=== PATIENT | female | born 1980 | race Caucasian/White ===

== ENCOUNTER 2019-11-25 10:53 | Outpatient (CLI) | payer OTHER, SELFPAY ==
--- NOTE | ~2019-11-25 | XR_ITS ---
EXAMINATION: XR knee RT 3V DATE: 11/25/2019 11:18 INDICATION: Right knee pain. TECHNIQUE: 3 views of right knee were obtained. COMPARISON: None. FINDINGS: Bone alignment is normal. No fracture. Joint spaces are well maintained. There is no knee j oint effusion. IMPRESSION: 1. Normal right knee. Reviewed, dictated and finalized at location A. IMPRESSION: 1. Normal right knee.
--- NOTE | ~2019-11-25 | XR_ITS ---
EXAMINATION: XR elbow RT min 3V DATE: 11/25/2019 11:18 INDICATION: Posterior right elbow pain for 6 months. No injury. TECHNIQUE: 4 views of right elbow were obtained. COMPARISON: None. FINDINGS: Bone alignment is normal. No fracture. Joint spaces are well maintained. There is no elbow joint effusion. IMPRESSION: 1. Normal right elbow. Reviewed, dictated and finalized at location A. IMPRESSION: 1. Normal right elbow.
== END 2019-11-25 10:54 | disposition home or self-care (01) ==
LOC: ANHIMG 10:58
PROVIDERS: PCP Family Medicine; Visit Provider Physician Assistant
DX: M25.521 Pain in right elbow (principal); M25.561 Pain in right knee
CPT/HCPCS: 73080; 73562

== ENCOUNTER 2020-05-27 06:54 | Outpatient (NON) | payer OTHER, SELFPAY ==
[2020-05-27 19:24] LABS: SARS-CoV-2 RNA PCR Negative
== END 2020-05-27 06:55 ==
LOC: ANHCOVIDDT 07:18
PROVIDERS: PCP Family Medicine; Visit Provider Physician Assistant
DX: R05 Cough (principal); Z20.822 Contact with and (suspected) exposure to COVID-19
CPT/HCPCS: C9803; U0003

== ENCOUNTER → 2020-12-02 15:06 | Outpatient (CLI) | payer OTHER, SELFPAY ==
--- NOTE | ~2020-12-02 | XR_ITS ---
XR foot RT min 3V DATE: 12/02/2020 16:27 INDICATION: Right foot pain TECHNIQUE: 4 views COMPARISON: None FINDINGS: No fracture, dislocation, periosteal reaction or bone destruction or erosive change. IMPRESSION: Negative Reviewed, dictated and finalized at location B. IMPRESSION: Negative
== END ==
PROVIDERS: PCP Physician Assistant; Visit Provider Physician Assistant
DX: M79.671 Pain in right foot (principal)
CPT/HCPCS: 73630

== ENCOUNTER → 2021-05-13 10:03 | Outpatient (CLI) | payer OTHER, SELFPAY ==
--- NOTE | ~2021-05-13 | MM_ITS ---
EXAMINATION: MM screening margot BI w louann HISTORY: Screening TECHNIQUE: Craniocaudal and mediolateral oblique 3-D tomosynthesis images were obtained and synthetic 2-D images were generated. CAD analysis was submitted and interpreted. COMPARISON: No prior mammogram is available for comparison at this institution. BREAST PARENCHYMAL COMPOSITION: The breasts are heterogenously dense, which may obscure small masses. FINDINGS: There is a focal asymmetry in the subareolar location of the right breast on CC view. There are no suspicious. Masses, calcifications or architectural distortion in the left breast to suggest malignancy. IMPRESSION: 1. Focal subareolar right breast asymmetry. 2. Additional mammographic views and possible breast ultrasound are recommended. BI-RADS Category 0: Incomplete: Needs additional imaging evaluation. Reviewed, dictated and finalized at location A. INE PRINTER IMPRESSION: 1. Focal subareolar right breast asymmetry. 2. Additional mammographic views and possible breast ultrasound are recommended . BI-RADS Category 0: Incomplete: Needs additional imaging evaluation.
== END ==
PROVIDERS: Visit Provider Obstetrics & Gynecology
DX: Z12.31 Encounter for screening mammogram for malignant neoplasm of breast (principal); R92.8 Other abnormal and inconclusive findings on diagnostic imaging of breast
CPT/HCPCS: 77063; 77067

== ENCOUNTER 2021-06-07 08:06 | Outpatient (CLI) | payer OTHER, SELFPAY ==
--- NOTE | ~2021-06-07 | MMUS_ITS ---
EXAMINATION: MM diagnostic margot RT w louann, US breast RT complete HISTORY: Follow-up right breast asymmetry TECHNIQUE: Additional 3-D tomosynthesis images of the right breast were performed and synthetic 2-D i mages were generated. CAD analysis was submitted and interpreted. High resolution complete right coral st ultrasound was performed. COMPARISON: 05/13/2021 BREAST PARENCHYMAL COMPOSITION: The breasts are heterogenously dense, which may obscure small masses. FINDINGS: MAMMOGRAPHIC FINDINGS: There are no suspicious masses, calcifications or architectural distortion in the right breast to sug gest malignancy. ULTRASOUND: Complete bilateral US of all 4 quadrants of the right and retroareolar region was reviewed. Normal he terogeneous echotexture without focal solid or cystic mass. IMPRESSION: 1. No evidence for malignancy in the right breast. 2. Routine yearly screening mammogram and regular clinical breast examination are recommended. BI-RADS Category 1: Negative Reviewed, dictated and finalized at location A. UNITY ASSOCIATION MANAGER IMPRESSION: 1. No evidence for malignancy in the right breast. 2. Routine yearly screening mammogram and regular clinical breast examination a re recommended. BI-RADS Category 1: Negative
== END 2021-06-07 08:07 ==
PROVIDERS: Visit Provider Obstetrics & Gynecology
DX: R92.8 Other abnormal and inconclusive findings on diagnostic imaging of breast (principal)
CPT/HCPCS: 76641; 77061; 77065; G0279

== ENCOUNTER → 2021-07-07 08:42 | Outpatient (CLI) | payer OTHER, SELFPAY ==
--- NOTE | ~2021-07-07 | CT_ITS ---
EXAMINATION: CT abdomen pelvis wo con DATE: 07/07/2021 09:13 INDICATION: Gross hematuria and bilateral flank pain TECHNIQUE: Computed tomography (CT) of the abdomen and pelvis was performed without intravenous contr ast. The dose-length product (DLP) was 635.95 mGy-cm. Automated exposure control and iterative recons truction technique were employed. COMPARISON: None FINDINGS: Minimal dependent atelectasis is present in the lung bases. The heart size is normal. The g allbladder is surgically absent. The liver, spleen, pancreas, and adrenal glands are normal. There ar e two nonobstructing stones of the right kidney lower pole which measure 1 mm and 2 mm. There appears to be a 2 mm stone at the left ureterovesicular junction. There is no hydronephrosis or hydroureter. No pathologically enlarged abdominal or pelvic lymph nodes are identified. There is no free intraper itoneal gas or evidence of bowel obstruction. There is mild lumbar spondylosis. IMPRESSION: 1. 2 mm stone of the left ureterovesicular junction without significant hydroureteronephrosis. 2. Nonobstructing right nephrolithiasis. Reviewed, dictated and finalized at location A. S PULLER IMPRESSION: 1. 2 mm stone of the left ureterovesicular junction without significant hydrour eteronephrosis. 2. Nonobstructing right nephrolithiasis.
== END ==
PROVIDERS: PCP Family Medicine; Visit Provider Physician Assistant
DX: N20.0 Calculus of kidney (principal); R31.9 Hematuria, unspecified; R10.9 Unspecified abdominal pain; N20.1 Calculus of ureter
CPT/HCPCS: 74176

== ENCOUNTER → 2022-07-11 16:00 | Outpatient (CLI) | payer OTHER, SELFPAY ==
--- NOTE | ~2022-07-11 | MM_ITS ---
EXAMINATION: MM screening margot BI w louann HISTORY: Screening mammogram TECHNIQUE: Craniocaudal and mediolateral oblique 3-D tomosynthesis images were obtained and synthetic 2-D images were generated. Bilateral rotated lateral CC views. CAD analysis was submitted and interp reted. COMPARISON: 06/07/2021 diagnostic right mammogram and complete right breast ultrasound 05/09/2021 bilateral screening mammogram BREAST PARENCHYMAL COMPOSITION: The breasts are heterogeneously dense, which may obscure small masses . FINDINGS: Suggestion of asymmetry/architectural distortion in the posterior outer left breast on rota trish lateral craniocaudal view. Diagnostic left mammogram is recommended, with ultrasound if required. Otherwise there is no evidence of suspicious mass, calcification, or architectural distortion to sugg est malignancy in either breast. There has been no other suspicious interval change. IMPRESSION: 1. Asymmetry/architectural distortion in posterior outer left breast on rotated lateral craniocaudal view 2. Diagnostic left mammogram is recommended, with ultrasound if required BI-RADS Category 0: Incomplete: Needs additional imaging evaluation. Reviewed, dictated and finalized at location A. FACTURING BUSINESS ANALYST
== END ==
PROVIDERS: PCP Family Medicine; Visit Provider Obstetrics & Gynecology
DX: Z12.31 Encounter for screening mammogram for malignant neoplasm of breast (principal); R92.8 Other abnormal and inconclusive findings on diagnostic imaging of breast
CPT/HCPCS: 77063; 77067

== ENCOUNTER 2022-07-18 15:54 | Outpatient (CLI) | payer OTHER, SELFPAY ==
--- NOTE | ~2022-07-18 | US_ITS ---
EXAMINATION: US pelvic complete w TV DATE: 07/18/2022 16:55 INDICATION: Irregular bleeding. Spotting between periods. Comparison:No prior studies for comparison. TECHNIQUE: Multiple transabdominal and endovaginal sonographic images of the pelvis performed. FINDINGS: The uterus measures 9.1 x 4.3 x 4.9 cm. The endometrial complex measures 9 mm. The right ovary measures 2.2 x 1.7 x 2.7 cm and the left ovary measures 3.4 x 2 x 2.1 cm. There are small follicles in each ovary. Normal doppler signal in both ovaries. There is no free fluid in the pelvis. There are no abnormal masses seen on either side. IMPRESSION: 1. Unremarkable pelvic ultrasound. Reviewed, dictated and finalized at location L. RER FILTER PLANT
== END 2022-07-18 15:55 ==
PROVIDERS: PCP Family Medicine; Visit Provider Obstetrics & Gynecology
DX: R10.2 Pelvic and perineal pain (principal); N93.8 Other specified abnormal uterine and vaginal bleeding
CPT/HCPCS: 76830; 76856

== ENCOUNTER 2022-08-02 09:31 | Outpatient (CLI) | payer OTHER, SELFPAY ==
--- NOTE | ~2022-08-02 | MMUS_ITS ---
EXAMINATION: MM diagnostic margot LT w louann, US breast LT complete HISTORY: Suggestion of asymmetry/architectural distortion in the posterior outer left breast on 2022 screening mammogram examination TECHNIQUE: Additional 3-D tomosynthesis images of left breast were performed and synthetic 2-D images were generated. CAD analysis was submitted and interpreted. High resolution complete left breast ult rasound examination: L4 quadrants and subareolar area was performed. COMPARISON: July 11, 2022 bilateral screening mammogram FINDINGS: MAMMOGRAPHIC FINDINGS: There is heterogeneously dense stroma which may obscure masses. No obvious discrete mass or sap basis architect ural distortion is noted. Kidney-shaped 4 x 6.8 mm mass in the posterior upper outer left breast is likely an a benign lymph no de. Due to the dense heterogeneous stroma throughout the left breast, complete left breast ultrasound exa mination was performed. ULTRASOUND: 8-9:00 6 cm from nipple: Parallel circumscribed irregular hypoechoic 2.4 x 5.2 x 4.6 mm solid lesion 8 9:00 6 cm from nipple: Irregular up to 1.3 x 0.6 x 26 cm solid mass with multiple finger-like proje ctions is noted. IMPRESSION: 1. There are 2 suspicious irregular solid masses 8-9:00 6 cm from the nipple 2. Ultrasound-guided biopsy of the 2 masses at 8 hypermetabolic proximal 6 cm from nipple is recommen ded BI-RADS category 4, suspicious findings. Dr. Bates telephoned the report and ultrasound-guided biopsy recommendation of the left breast on 08/02 [address] Barbara Puente. Reviewed, dictated and finalized at location A. IMPRESSION: 1. There are 2 suspicious irregular solid masses 8-9:00 6 cm from the nipple 2. Ultrasound-guided biopsy of the 2 masses at 8 hypermetabolic proximal 6 cm f rom nipple is recommended BI-RADS category 4, suspicious findings. Dr. Bates telephoned the report and ultrasound-guided biopsy recommendation of t he left breast on 08/02/[address] Barbara Puente.
== END 2022-08-02 09:32 ==
LOC: MICIMG 09:32
PROVIDERS: PCP Family Medicine; Visit Provider Obstetrics & Gynecology
DX: R92.8 Other abnormal and inconclusive findings on diagnostic imaging of breast (principal)
CPT/HCPCS: 76641; 77061; 77065; G0279

== ENCOUNTER 2022-08-10 10:38 | Outpatient (CLI) | payer OTHER, SELFPAY ==
--- NOTE | ~2022-08-10 | MMUS_ITS ---
US breast biopsy LT w image, MM post biopsy invasive LT EXAMINATION: US GUIDED NEEDLE BIOPSY WITH VACUUM ASSISTANCE DATE: 08/10/2022 12:05 CDT INDICATION: Left breast masses seen on prior examination. Ultrasound-guided core biopsy is requested to evaluate for malignancy. TECHNIQUE AND FINDINGS: Initial ultrasound images demonstrate contiguity of the 2 masses at the 8-9:00 position of the left b reast, 6 cm from the nipple. Therefore only one biopsy is necessary. The risks and potential benefits of the procedure were discussed with the patient, and written informed consent was obtained. After sterile preparation of the left breast, 1% lidocaine was utilized for local anesthesia. 1% lidocaine with epinephrine was used for deep anesthesia. A 10G vacuum-assisted biopsy gun needle was advanced through to the outer edge of the region of inter est from a superior approach utilizing sonographic guidance. A total of 5 tissue core samples were o btained through the lesion. An Inrad tissue marker clip was then placed at the biopsy site. Hemostas is was achieved. The patient tolerated procedure well and there was no evidence of immediate complication. The patien t was given verbal instructions partly is from the department. Left breast mammograms to document ti ssue marker clip placement. The tissue samples were submitted to surgical pathology for histologic an alysis. IMPRESSION: 1. Successful ultrasound-guided vacuum-assisted biopsy of left breast mass with tissue marker placem ent. Please refer to pathology report for histologic analysis. Reviewed, dictated and finalized at location A. IMPRESSION: 1. Successful ultrasound-guided vacuum-assisted biopsy of left breast mass wit h tissue marker placement. Please refer to pathology report for histologic anal ysis.
== END 2022-08-10 10:39 | disposition home or self-care (01) ==
LOC: ANHIMG 10:40
PROVIDERS: PCP Family Medicine; Visit Provider Obstetrics & Gynecology
DX: D24.2 Benign neoplasm of left breast (principal)
CPT/HCPCS: 19083; 88305; 88342; A4648

== ENCOUNTER → 2022-11-08 10:43 | Outpatient (CLI) | payer OTHER, SELFPAY | PROVIDERS: PCP Family Medicine; Visit Provider Physician Assistant | DX: M25.571 Pain in right ankle and joints of right foot (principal); M79.89 Other specified soft tissue disorders | CPT/HCPCS: 73610 ==

== ENCOUNTER → 2023-04-02 16:54 | Outpatient (CLI) | payer OTHER, SELFPAY ==
--- NOTE | ~2023-04-02 | XR_ITS ---
EXAMINATION: XR lumbar spine 2-3V, XR sacroiliac joints min 3V DATE: 04/02/2023 17:25 INDICATION: Unspecified low back pain TECHNIQUE: 1. Anteroposterior and lateral views of the lumbar spine, and cone-down lateral view of the lumbosacr al junction were obtained. 2. AP and left and right oblique views of the sacroiliac joints were obtained. COMPARISON: None. FINDINGS: Lumbar spine: Transitional thoracolumbar segment designated L1 for purposes of this report with bilateral hypoplast ic riblets. There are 4 more caudal nonrib-bearing lumbar segments L2-L5. 8 degree lumbar levocurvatu re. Vertebral body heights are normal. Minimal to mild disc height loss at T11-T12 through L2-L3 and at L5-S1. Cholecystectomy clips in right upper quadrant. Sacroiliac joints: Sacral arches are intact. No fractures. Mild bilateral sacroiliac osteoarthritis with mild inferior p redominant nonuniform joint space narrowing and small inferior marginal osteophytes. The articular co rtices remain sharply defined with no subarticular sclerosis or erosions to suggest an inflammatory s acroiliitis. Mild bilateral hip osteoarthritis. IMPRESSION: 1. A degree lumbar levocurvature with minimal to mild spondylosis. 2. Mild bilateral sacroiliac and hip osteoarthritis. Reviewed, dictated and finalized at location A. ATRIC RN IMPRESSION: 1. A degree lumbar levocurvature with minimal to mild spondylosis. 2. Mild bilateral sacroiliac and hip osteoarthritis.
== END ==
PROVIDERS: PCP Family Medicine; Visit Provider Family Medicine
DX: M43.06 Spondylolysis, lumbar region (principal); M16.0 Bilateral primary osteoarthritis of hip; M46.1 Sacroiliitis, not elsewhere classified; M43.8X6 Other specified deforming dorsopathies, lumbar region
CPT/HCPCS: 72100; 72202

== ENCOUNTER 2023-04-04 01:15 | Day surgery (SDC) | payer OTHER, SELFPAY ==
[2023-03-21 11:29] VITALS: BMI 31.6
--- NOTE | 2023-04-02 11:17 | SUR.PREOP ---
Patient called regarding upcoming procedure. Reviewed preop instructions, appointment times, and procedure prep.
[2023-04-04 12:00] VITALS: BP 132/90; PULSE 95; RESP 18; TEMP 36.6; O2SAT 100
[2023-04-04] MEDS: LACTATED RINGERS 1,000 ML 150 ML IV CONT (12:06)
--- NOTE | 2023-04-04 12:38 | P.PNAN_ITS ---
Anes - Initial Pre Proc Eval Procedure: Operation Date: 04/04/23 13:00 Proposed Procedures p Colonoscopy - Ovidio Leigh MD Date/Time: 04/04/23 12:38 Surgeon: Ovidio Leigh MD Pre Op Diagnosis: noninfective gastroenteritis and colitis Patient Data Age: 43 Gender: F Height: 1.6 m Weight: 84 kg Last Vital Signs Temp 97.9 F 04/04/23 12:00 Pulse 95 04/04/23 12:00 Resp 18 04/04/23 12:00 BP 132/90 04/04/23 12:00 Pulse Ox 100 04/04/23 12:00 O2 Del Method Room Air 04/04/23 12:00 Allergies Allergy/AdvReac Type Severity Reaction Status Date / Time Sulfa (Sulfonamide Allergy Severe Hives Verified 04/04/23 11:53 Antibiotics) Home Medications Medication Instructions Recorded Confirmed Type multivitamin 1 tablet PO DAILY 11/25/19 04/02/23 History colestipol 1 gram tablet 1 g PO BID #60 tabs 03/06/23 04/02/23 Rx rifaximin 550 mg tablet (Xifaxan) 550 mg PO TID 14 days #42 tabs 03/06/23 04/02/23 Rx cholecalciferol (vitamin D3) 25 25 mcg PO DAILY 03/21/23 04/02/23 History mcg (1,000 unit) tablet (Vitamin D3) cyclobenzaprine 5 mg tablet 5 mg PO TID PRN muscle spasm #30 04/02/23 04/04/23 Rx tabs Patient hx anesthesia problems: none Family hx anesthesia problems: none Results Review: All pre-operative results and documents have been reviewed as part of the pre- operative evaluation. FOR[facility]LY [facility] Past Medical History Medical History Chronic diarrhea Cough Gas bloat syndrome Nausea Obesity Surgical History Surgical History S/P cholecystectomy Social History Social History Smoking status: Former smoker Tobacco type: cigarettes Alcohol intake: current Alcohol use details: 2 drinks monthly Substance use: never Substance use type: does not use Living arrangements: with family Occupation/Education: occupation Gender identity (if verbalized by the patient): Female Sexual Orientation (if Verbalized by the Patient): Straight or Heterosexual Spiritual care concerns: No Anes - Eval Final PreProcedure Day of Procedure 04/04/23 12:38 Patient weight: obese Heart: regular rate and rhythm Lungs: clear to auscultation Airway: Mallampati scale class II Neurological: alert and oriented Last oral intake: >/= 8 hours ASA classification: II Emergent: no Anesthetic plan: proceed Anesthesia type and monitoring: general GIVS and standard monitoring Results Review: All pre-operative results and documents have been reviewed as part of the pre- operative evaluation. Informed Consent: The patient's anesthetic plan and its attendant risks and benefits were discussed with the patient/family/POA. Questions were solicited and answers provided to the satisfaction of the patient/family/POA.
--- NOTE | 2023-04-04 12:47 | WPDHPUPDATE1 ---
History and Physical Update Update Date/Time: 04/04/23 12:47 History and Physical has been reviewed, including an updated exam of the patient. There are NO changes in the patient's condition. Risks, benefits, and alternatives have been discussed and questions answered. Patient agrees to proceed with procedure.
[2023-04-04 13:08] VITALS: BP 129/81; PULSE 83; RESP 21; O2SAT 100
[2023-04-04 13:18] VITALS: BP 124/87; PULSE 68; RESP 17; O2SAT 100
[2023-04-04 13:28] VITALS: BP 125/79; PULSE 74; RESP 17; O2SAT 100
== END 2023-04-04 13:32 | disposition home or self-care (01) ==
PROVIDERS: PCP Family Medicine; Visit Provider Internal Medicine Gastroenterology
PROC: 0DJD8ZZ Inspection of Lower Intestinal Tract, Via Natural or Artificial Opening Endoscopic (ICD-10-PCS; CPT 45378; principal; 2023-04-04 13:00)
DX: K58.0 Irritable bowel syndrome with diarrhea (principal); K63.5 Polyp of colon; K64.8 Other hemorrhoids; Z87.891 Personal history of nicotine dependence; E66.9 Obesity, unspecified; Z68.32 Body mass index [BMI] 32.0-32.9, adult
CPT/HCPCS: 45380; 45385; 88305; J2704; J7120

== ENCOUNTER 2023-04-25 08:58 | Outpatient (CLI) | payer OTHER, SELFPAY ==
--- NOTE | 2023-04-25 09:27 | EST_ITS ---
Patient Info Name: Modesta Hanna Age: 43 years : 1980 Gender: Female Ht: 63 in Wt: 185 lbs BSA: 1.96 m2 HR: 58 bpm BP: 142 / 85 mmHg Heart Rhythm: Sinus Rhythm Exam Date: 04/25/2023 9:38 AM Exam Location: Echo Lab Patient Status: Outpatient Admit Date: 04/25/2023 Staff Ordering Physician: Rolf Kevin PA-C Attending Provider: Rolf Kevin PA-C Exercise Technologist: Rachel Zayas CT Exercise Physician: Kofi Perry DO Exam Type: CA stress test treadmill Study Info Indications R07.89 - Other chest pain A regadenoson stress test was performed. Summary 1. 1. Negative Srikanth exercise stress test for ischemic ST changes by ECG criteria. 2. 2. Good functional capacity, achieving 10 METs of workload. 3. 3. Baseline hypertension. 4. 4. Appropriate HR response to exercise. 5. 5. Appropriate HR recovery at 1 minute post exercise. 6. 6. No imaging with stress testing. 7. 7. Patient informed of the above results. Protocol: Srikanth Stress ECG Details Stage: REST Duration (min): 1 min : 13 sec Speed (mph): 0.0 Grade (%): 0 HR (bpm): 61 SBP (mmHg): 142 DBP (mmHg): 85 METS: --- Stage: REST Duration (min): 7 min : 38 sec Speed (mph): 0.0 Grade (%): 0 HR (bpm): 80 SBP (mmHg): 142 DBP (mmHg): 85 METS: --- Stage: STAGE 1 Duration (min): 1 min : 0 sec Speed (mph): 1.7 Grade (%): 10 HR (bpm): 97 SBP (mmHg): 142 DBP (mmHg): 85 METS: --- Stage: STAGE 1 Duration (min): 2 min : 0 sec Speed (mph): 1.7 Grade (%): 10 HR (bpm): 111 SBP (mmHg): 142 DBP (mmHg): 85 METS: --- Stage: STAGE 1 Duration (min): 3 min : 0 sec Speed (mph): 1.7 Grade (%): 10 HR (bpm): 109 SBP (mmHg): 161 DBP (mmHg): 97 METS: --- Stage: STAGE 2 Duration (min): 1 min : 0 sec Speed (mph): 2.5 Grade (%): 12 HR (bpm): 120 SBP (mmHg): 161 DBP (mmHg): 97 METS: --- Stage: STAGE 2 Duration (min): 2 min : 0 sec Speed (mph): 2.5 Grade (%): 12 HR (bpm): 126 SBP (mmHg): 174 DBP (mmHg): 95 METS: --- Stage: STAGE 2 Duration (min): 3 min : 0 sec Speed (mph): 2.5 Grade (%): 12 HR (bpm): 136 SBP (mmHg): 174 DBP (mmHg): 95 METS: --- Stage: STAGE 3 Duration (min): 1 min : 0 sec Speed (mph): 3.4 Grade (%): 14 HR (bpm): 148 SBP (mmHg): 196 DBP (mmHg): 92 METS: --- Stage: STAGE 3 Duration (min): 2 min : 0 sec Speed (mph): 3.4 Grade (%): 14 HR (bpm): 156 SBP (mmHg): 196 DBP (mmHg): 92 METS: --- Stage: STAGE 3 Duration (min): 2 min : 0 sec Speed (mph): 3.4 Grade (%): 14 HR (bpm): 156 SBP (mmHg): 196 DBP (mmHg): 92 METS: --- Stage: RECOVERY Duration (min): 0 min : 59 sec Speed (mph): 0.0 Grade (%): 0 HR (bpm): 125 SBP (mmHg): 202 DBP (mmHg): 89 METS: --- Stage: RECOVERY Duration (min): 1 min : 59 sec Speed (mph): 0.0 Grade (%): 0 HR (bpm): 108 SBP (mmHg): 18
== END 2023-04-25 08:59 | disposition home or self-care (01) ==
LOC: ANHCARD 08:59
PROVIDERS: PCP Family Medicine; Visit Provider Physician Assistant
DX: R07.89 Other chest pain (principal); I10 Essential (primary) hypertension; Z82.49 Family history of ischemic heart disease and other diseases of the circulatory system
CPT/HCPCS: 93017

== ENCOUNTER 2023-05-04 15:19 | Outpatient (RCR) | payer OTHER, SELFPAY ==
--- NOTE | 2023-04-25 09:00 | PCPTNOTE ---
Patient called & cancelled scheduled initial evaluation this date due to having another appointment. She has been rescheduled.
--- NOTE | 2023-05-04 16:52 | OPREHPOC ---
Outpatient Therapy Plan of Care This is a Multidisciplinary Plan of Care that may contain components documented by all disciplines (PT, OT, and ST.) PT Problem 1 PT Problem #1 Knowledge Deficit PT Goal 1 Goal Pt to be IND with issued Target Visit 4 PT Problem 2 PT Problem #2 Pain PT Goal 1 Goal Pt to report back pain no greater than 3/10 in the last week Target Visit 4 PT Goal 2 Goal Pt to report 75% improvement in overall symptoms PT Problem 3 PT Problem #3 Pain PT Goal 1 Goal Pt to report being able to sit to 3 hours without an increase in pain Target Visit 4 PT Problem 4 PT Problem #4 Impaired Functional Mobil PT Goal 1 Goal Pt to demonstrate a functional lift and carry with 20lb without an increase in pain Target Visit 4
--- NOTE | 2023-05-04 16:52 | PTOPEVAL1 ---
Assessment and note entered by Chao Vila, PT, DPT Evaluation Information Assessment Status Evaluation Diagnosis low back and sciatic nerve pain Onset 1-2 years Subjective Information Pt report a year long history of low back pain, she states this has gotten progressively worse in the last year. 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 She states it feels like her back locks up if she stands all the way tall. She states she is always just a little bit uncomfortable. She states she was given a muscle relaxer without much relief. Reported Pain Level Pain Score 3: Self Report Assessment PT Clinical Summary Modesta presents to therapy for her initial evaluation with a diagnosis of low back pain. Today she demonstrates good LE strength and ROM. She has asymmetric pelvic alignment in supine and demonstrates poor core strength strength during functional movements. Skilled therapy services are indicated to improve core Strength and body awareness, manage pain, and to return to PLOF. Plan of Care Interventions Electrical Stimulation,Gait Training,Hot Pack/Cold Pack,Manual Therapy,Neuro Re-education,Patient/ Caregiver Educati,Therapeutic Activities, Therapeutic Exercise PT Services Indicated Yes Treatment Frequency and 1x/wk for 4 visits Duration These treatments will address the objective and functional deficits as defined above. The patient will be advanced safely and appropriately in order for the patient to progress towards his/her prior level of function. Additional exercises will be introduced and as well as a comprehensive home exercise program upon discharge, if needed, ?to ensure carryover of functional gains achieved in the clinic. This treatment plan has been reviewed and agreement upon by the patient.
--- NOTE | 2023-05-23 15:59 | PCPTNOTE ---
Patient no showed to appointment this date. Called and left voicemail.
--- NOTE | 2023-06-04 08:34 | PCPTNOTE ---
Patient did not show up for scheduled appointment on 06/01/23. LVM with instructions to follow up.
--- NOTE | 2023-06-18 13:47 | PTOPDC ---
Assessment and note entered by Chao Vila, PT, DPT Evaluation Information Assessment Status Discharge - Pt Not Present Diagnosis low back and sciatic nerve pain Onset 1-2 years Subjective Information Pt did not show up for her re-evaluation scheduled on 06/04/23. Called pt at that time and LVM with instructions to follow up if needed. Have not heard from pt. Assessment PT Clinical Summary Modesta was evaluated on 05/04/23 and did not complete any follow up appointments. She will be discharged at this time d/t poor therapy attendance.
== END 2023-06-18 14:18 | disposition home or self-care (01) ==
LOC: ANHGOSHPT 15:19
PROVIDERS: PCP Family Medicine; Visit Provider Physician Assistant Medical
DX: M54.50 Low back pain, unspecified (principal); M54.30 Sciatica, unspecified side
CPT/HCPCS: 97110; 97161; 99199

== ENCOUNTER 2023-09-05 12:08 | Outpatient (CLI) | payer OTHER, SELFPAY ==
--- NOTE | ~2023-09-05 | MM_ITS ---
EXAMINATION: MM screening margot BI w louann HISTORY: Screening TECHNIQUE: Craniocaudal and mediolateral oblique 3-D tomosynthesis images were obtained and synthetic 2-D images were generated. CAD analysis was submitted and interpreted. COMPARISON: Comparison to multiple prior studies sequentially, with oldest reviewed study dated 04/21. BREAST PARENCHYMAL COMPOSITION: Dense: The breasts are heterogeneously dense, which may obscure small masses FINDINGS: There is no evidence of suspicious mass, calcification, or architectural distortion to sugg est malignancy in either breast. There has been no suspicious interval change. IMPRESSION: 1. No mammographic evidence of malignancy. 2. Recommend routine screening mammography in one year. BI-RADS Category 1: Negative Reviewed, dictated and finalized at location B.
== END 2023-09-05 12:09 ==
LOC: MICIMG 12:08
PROVIDERS: PCP Obstetrics & Gynecology; Visit Provider Obstetrics & Gynecology
DX: Z12.31 Encounter for screening mammogram for malignant neoplasm of breast (principal)
CPT/HCPCS: 77063; 77067

== ENCOUNTER 2024-09-08 15:08 | Outpatient (CLI) | payer OTHER, SELFPAY ==
--- NOTE | ~2024-09-08 | MM_ITS ---
EXAMINATION: MM screening [facility] BI w louann HISTORY: Screening TECHNIQUE: Craniocaudal and mediolateral oblique 3-D tomosynthesis images were obtained and synthetic 2-D images were generated. CAD analysis was submitted and interpreted. COMPARISON: 09/05/2023 and dating back to 05/13/2021 BREAST PARENCHYMAL COMPOSITION: The breasts are heterogeneously dense, which may obscure small masses . FINDINGS: Redemonstration of an intramammary lymph node within the upper outer left breast, stable an d benign in appearance. Microclip within the lower inner left breast, consistent with previous percutaneous biopsy yielding a benign fibroadenoma. Otherwise stable parenchymal pattern without suspicious microcalcifications, architectural distortion or significant asymmetry. IMPRESSION: 1. No mammographic evidence of malignancy. 2. Recommend routine screening mammography in one year. BI-RADS Category 2: Benign finding(s). Reviewed, dictated and finalized at location A.
== END 2024-09-08 15:09 | disposition home or self-care (01) ==
LOC: MICIMG 15:09
PROVIDERS: PCP Family Medicine; Visit Provider Obstetrics & Gynecology
DX: Z12.31 Encounter for screening mammogram for malignant neoplasm of breast (principal)
CPT/HCPCS: 77063; 77067